=== PATIENT | female | born 1990 | race Caucasian/White ===

== ENCOUNTER 2016-04-07 16:24 | Emergency (ER) | payer OTHER ==
[~2016-04-07] VITALS: Ht 167.6 cm; Wt 49.0 kg
[~2016-04-07 16:24] MED LIST: BUPRENORPHINE HC8 MG SL; NOHOMEMEDS; ULTRAM50 MG PO
[2016-04-07] MEDS ORDERED: MOTRIN600 MG PO (18:04)
[2016-04-07] MEDS ORDERED: FLEXERIL10 MG PO (18:04)
[2016-04-07 18:37] VITALS: BP 125/75
== END 2016-04-07 18:37 | disposition home or self-care (01) ==
LOC: EME 16:24
DX: S80.02XA Contusion of left knee, initial encounter (principal); V49.40XA Driver injured in collision with unspecified motor vehicles in traffic accident, initial encounter; Z79.891 Long term (current) use of opiate analgesic; F17.200 Nicotine dependence, unspecified, uncomplicated
CPT/HCPCS: 73564; 99281; 99284

== ENCOUNTER 2016-05-20 20:53 | Emergency (ER) | payer OTHER ==
[~2016-05-20 20:53] MED LIST changes: +FLEXERIL10 MG PO; +MOTRIN600 MG PO
== END 2016-05-20 21:33 | disposition left against medical advice (07) ==
LOC: EME 20:53
DX: R19.7 Diarrhea, unspecified (principal); R50.9 Fever, unspecified; Z53.21 Procedure and treatment not carried out due to patient leaving prior to being seen by health care provider